=== PATIENT | female | born 1970 | race Caucasian/White ===

== ENCOUNTER 2024-01-22 17:34 | Emergency (ER) | payer OTHER, SELFPAY ==
[2024-01-22 17:40] VITALS: BP 112/79
[2024-01-22 18:01] LABS: % Basophils 0.2 % (0-2); % Immature Granulocytes 0.2 % (0-0.5); % Lymphocytes 28.7 % (20.5-51.1); % Monocytes 4.6 % (1.7-9.3); % Neutrophils 65.3 % (42.2-75.2); Absolute Eosinophils 0.1 10^3/uL (0-0.7); Absolute Lymphocytes 2.3 10^3/uL (1.2-3.4); Absolute Monocytes 0.4 10^3/uL (0.1-0.6); Absolute Neutrophils 5.2 10^3/uL (1.4-6.5); Hematocrit 40.5 % (37.0-47.0); Hemoglobin 13.9 g/dL (12.0-16.0); Mean Corp Hgb Conc. 34.3 g/dL (33.0-37.0); Mean Corpuscular Hgb 28.3 pg (27.0-31.0); Mean Corpuscular Volume 82.5 fL (81.0-99.0); Mean Platelet Volume 9.7 fL (7.4-10.4); Nucleated Red Blood Cells % 0 %; Platelet Count 332 10^3/uL (130-400); Red Blood Cell Count 4.91 10^6/uL (4.20-5.40); Red Cell Dist. Width 13.2 % (11.5-14.5)
[2024-01-22 18:14] LABS: ALT (SGPT) 22 U/L (0-35); AST (SGOT) 28 U/L (14-36); Albumin 4.7 g/dl (3.5-5.0); Alkaline Phosphatase 49 U/L (38-126); Blood Urea Nitrogen 14 mg/dl (7-17); Calcium 9.9 mg/dl (8.4-10.2); Carbon Dioxide 25 mmol/L (22-30); Chloride 105 mmol/L (98-107); Glucose 125 mg/dl (70-99); Potassium 3.6 mmol/L (3.5-5.1); Sodium 136 mmol/L (135-145); Total Bilirubin 0.8 mg/dl (0.2-1.3); Total Protein 7.6 g/dl (6.3-8.2); eGFR > 60.00
[2024-01-22 18:50] LABS: COVID-19 Antigen Negative (Negative)
--- NOTE | 2024-01-22 21:00 | ED.GENMED ---
History of Present Illness
General
Chief Complaint: Abdominal Symptoms
Source: patient
Exam Limitations: none
Time Seen by Provider: 01/22/24 20:34
Travel History
Have you had any contact with someone who has COVID-19?: No
Do you have any symptoms of coronavirus? Fever > 100 degrees, chills, cough, shortness of breath, sore throat, loss of taste or smell, muscle aches, or headache?: No
History of Present Illness
History of Present Illness:
This is a 53 year old female that comes in with c/o nausea/diarrhea and no appetite. States that she was in [place] and then [place]. States that she got back about 1.5 weeks ago on a Saturday. States that the last day or so she was not feeling good.
States that she was nauseated and was unable to eat. Since then she has not had any appetite. States that when she got home she started with diarrhea. States that she has upper abd discomfort. States that this is on and off and the diarrhea was on
and off. States that she has not had any diarrhea today. States that she has been working but continued with nausea. Denies any fever, chills, chest pain, SOB, headache, dizziness, urinary burning.
Past History
Past History
ED Past Medical History: Hypercholesterolemia and Psychiatric (Depression); Negative Asthma, HTN or NIDDM
ED Past Surgical History: Gynecological (D&C, Uterine polyp removed)
Social History
Tobacco: Non-smoker
Alcohol: Occasional
Drug: None
Personal:
Living: with family
Employment: Employed
Review of Systems
Review of Systems
All Other Systems: ROS reviewed and negative except as documented in HPI and ROS
Constitutional: Reports no symptoms; Denies fever or chills
EENT: Reports no symptoms
Respiratory: Reports no symptoms; Denies cough or trouble breathing
Cardiac: Denies no symptoms or chest pain
ABD/GI: Reports abdominal pain (Upper abd pain), nausea and diarrhea (on and off); Denies vomiting
: Reports no symptoms; Denies dysuria, frequency or urgency
Musculoskeletal: Reports no symptoms
Skin: Reports no symptoms
Neurological: Reports no symptoms; Denies dizzy or headache
Psychiatric: Reports no symptoms
Phy Exam
General Physical Exam
General Presentation: well appearing and no apparent distress
General age: appears stated age
General Skin: warm and dry
General Habitus: normal
General Mental: alert
General Hydration: appears well hydrated
ENT Exam
ENT Exam: TM's normal, pharynx normal and neck supple
Eye Exam
Eye Exam: EOMI
Cardiovascular Exam
Cardiovascular Exam: regular rate/rhythm, no edema, no murmur and normal peripheral pulses
Pulmonary Exam
Pulmonary Exam: lungs clear, no respiratory distress, no rales, chest non tender, no crackles, no rhonchi, no wheezing and no cough
Gastrointestinal Exam
Gastrointestinal Exam: normal bowel sounds, soft, no organomegaly, no pulsatile mass, non distended and tender (epigastric tenderness)
Musculoskeletal Exam
Musculoskeletal Exam: full ROM and no edema
Skin Exam
Skin Exam: normal color, warm/dry, no rash and no petechia
Psychiatric Exam
Psychiatric Exam: normal mood/affect
Course
Orders/Labs/Results
Orders:
Orders
01/22/24 17:46
Electrocardiogram (*1) Urgent
Reason for Study: Abdominal Pain
EKG- Treatment ONCE
01/22/24 17:55
COVID-19 Antigen Urgent
Source: Nasal Swab
Complete Blood Count/With Diff Urgent
Comprehensive Metabolic Panel Urgent
Influenza A+B Rapid Molecular Urgent
[facility] Source: Nasal Swab
Specimen Description:
01/22/24 20:59
0.9% Sodium Chloride 1000 ml [Nss] 1,000 ml IV BOLUS
Ondansetron Injectable [Zofran] 4 mg IV NOW STA
Pantoprazole [Protonix IV] 40 mg IV NOW STA
Sucralfate Suspension [Carafate Suspension] 1 gm PO NOW STA
01/22/24 21:07
US Abdomen Complete/Upper Urgent
Comment:
Reason For Exam: Upper abd tenderness
01/22/24 21:16
Urinalysis Reflex To Culture Urgent
Date Specimen was Collected: 01/22/24
Time Specimen was Collected: 21:06
Urine Microscopic Reflex Cult Urgent
Urine Culture Urgent
[facility] Source: U
Specimen Description:
Date Specimen was Collected: 01/22/24
Time Specimen was Collected: 21:06
Abnormal Lab Results
01/22/24 01/22/24
17:55 21:16
Glucose 125 H mg/dl
(70-99)
Urine Ketones 1+ A
(Negative)
Leukocyte Esterase Rfl 2+ A
(Negative)
Urine WBC (Reflex) 11-15 A /HPF
(0-5)
Urine Bacteria (Reflex) Many A
(Negative)
01/22/24 17:55
01/22/24 17:55
Glucose nonfasting, COVID and Influenza Negative. Urine positive for UTI.
Vital Signs
Initial and Last Documented VS:
Initial Vital Signs
Temp Pulse Resp BP Pulse Ox
97.9 F 88 20 112/79 100
01/22/24 17:40 01/22/24 17:40 01/22/24 17:40 01/22/24 17:40 01/22/24 17:40
Last Documented Vital Signs
Temp Pulse Resp BP Pulse Ox
97.9 F 88 20 103/71 100
01/22/24 17:40 01/22/24 17:40 01/22/24 17:40 01/22/24 21:30 01/22/24 17:40
MDM/Problems Addressed
Differential Diagnosis Includes:
Gastritis, Enteritis,
MDM/Problems Addressed:
This is a 53 year old female that comes in with nausea, diarrhea and decreased appetite. States that this started about 1.5 weeks ago when she got home from [place] and [place]. States that the diarrhea comes and goes and she has not had any diarrhea
today. States that she is nauseated and has lost 10 pounds.
Will get labs, US, IV fluids and medication.
Back into see patient. Explained that her US shows a fatty liter. Other goode her blood work is normal and she is negative for COVID and Influenza. IT appears that she may have a UTI. WIll treat with antibiotics. Patient will also be given Protonix
to help with gastritis. Patient to follow up with the family doctor. Patient to return with any concerns.
Chronic conditions affecting care:
NA
Acute Exacerbation and/or Progression of Chronic Illness:
NA
*Radiology
Radiology exam reviewed: radiology read reviewed (US= Increased echogenicity in the liver, compatible with underlying hepatocellular disease, which most commonly related to fatty infiltration of the liver. )
*Pulse Oximetry
Patient hypoxic: no
*EKG
Interpreted by ED Provider?: NA
Rate: EKG- N/A
*It Support Consultant Interpretation
Rate: It Support Consultant- N/A
*Critical Care Note
Total Time (30-74mins, 75-104mins- exclusive of procedures): Not Applicable
ED Attending Note
-
Portions of this chart may have been created with voice recognition software.� Occasional wrong word or��sound alike� substitutions may have occurred due to the inherent limitations of voice recognition software.
Discharge Plan
Departure
Patient Disposition: Home (Routine Discharge)
Date of Disposition: 01/22/24
Time of Disposition: 22:56
Patient with high blood pressure during this ER visit?: No
Condition: Good
Covid-19: Negative COVID-19
Discharge Problem:
Gastritis, Urinary tract infection
Instructions: Urinary Tract Infection, Adult (DC), Gastritis (DC), Ulcer and Gastritis Diet
Prescriptions:
New
cephalexin 500 mg capsule
500 mg PO BID Qty: 13 0RF
pantoprazole [Protonix] 40 mg tablet,delayed release (DR/EC)
40 mg PO DAILY Qty: 30 0RF
No Action
Blisovi 24 Fe Tablet
1 tab PO DAILY
Pravastatin Sodium
20 mg PO DAILY
Referrals:
Mahi William PA [Family Provider] - Follow up in 2-3 days
Activity Restrictions/Additional Instructions:
As discussed, your blood work is normal and you are negative for COVID and Influenza. Your Ultrasound shows that you have a fatty liver. Your urine appears to show infection. You have been given an antibiotic here and a prescription has been sent to
your Pharmacy. Please take as directed. You also have been given a prescription for Protonix that will help with Gastritis which is an inflammation of the stomach lining. This can be due to food or increased acid. Please try and decrease your
caffeine intake. Please increase your water intake to 8-8oz glasses daily. IF YOU HAVE INCREASED OR CHANGING PAIN, OR YOU HAVE ANY OTHER CONCERNS PLEASE RETURN TO THE EMERGENCY ROOM.
Interventions
Interventions:
*Risk Screen - Suicide Last Done: 01/22/24 17:40
*General Assessment Last Done: 01/22/24 17:40
*Neglect/Abuse Screening Last Done: 01/22/24 17:40
AA-Wcbwjt-Jzwnrwovyy Assessment Last Done: 01/22/24 21:32
[2024-01-22] MEDS: PROTONIX IV 40 MG IV (21:22)
[2024-01-22] MEDS: CARAFATE SUSPENSION 1 GM PO (21:22)
[2024-01-22] MEDS: NSS 1000 IV (21:22)
[2024-01-22] MEDS: ZOFRAN 4 MG IV (21:23)
[2024-01-22 21:30] VITALS: BP 103/71
[2024-01-22 21:35] LABS: Urine Albumin Negative (Neg - Trace); Urine Bilirubin Negative (Negative); Urine Character Clear (Clear); Urine Color Yellow; Urine Glucose Negative (Negative); Urine Ketone 1+ (Negative); Urine Leukocyte 2+ (Negative); Urine Nitrite Negative (Negative); Urine Occult Blood Negative (Negative); Urine Specific Gravity 1.025 (<1.030); Urine Urobilinogen Negative (Neg - 1+)
[2024-01-22 21:46] LABS: Urine Bacteria Many (Negative); Urine Mucus Many; Urine Red Blood Cell 0-2 /HPF (0-2)
[2024-01-22] MEDS: KEFLEX 500 MG PO (23:05)
== END 2024-01-22 23:09 | disposition home or self-care (01) ==
LOC: EMR 17:34
PROVIDERS: Clinical Nurse Specialist Family Health; Student in an Organized Health Care Education/Training Program; EMERGENCY PHYSICIAN Emergency Medicine; FAMILY PHYSICIAN Physician Assistant Medical
DX: K29.70 Gastritis, unspecified, without bleeding (principal); N39.0 Urinary tract infection, site not specified; Z11.52 Encounter for screening for COVID-19
CPT/HCPCS: 99285; 96374; 96375; 96361; 76700; 80053; 81003; 81015; 85025; 87086; 87502; 87811; 93005